=== PATIENT | male | born 1985 | race Caucasian/White ===

== ENCOUNTER → 2020-02-07 | Outpatient (CLI) | payer BC ==
--- NOTE | 2020-02-07 13:01 | REP ---
Clinical: Scrotal pain. Technique: Real time bates scale and color Doppler evaluation using linear high frequency transducer. Findings: The bilateral testicles are normal in contour, size, echogenicity, and vascularity without intratesticular mass lesion, infectious/inflammatory process, or torsion. Small amount of bilateral scrotal fluid is nonspecific. The right epididymis appears relatively normal. The left epididymis includes 4.1 x 4.7 x 4.7 mm simple cyst. Impression: 4.7 cm simple left epididymal head cyst.
== END ==
LOC: M PLAIMG 10:57
PROVIDERS: ATTEND Physician Assistant
DX: N50.82 Scrotal pain (principal)